=== PATIENT | female | born 1940 | race Two or more races ===

== ENCOUNTER 2018-03-19 10:15 | Inpatient (IN) | payer OTHER ==
[~2018-03-19] VITALS: Ht 162.6 cm; Wt 88.9 kg
[~2018-03-19 10:15] MED LIST: CATAFLAM50 MG; KETO10TA2 PO; NEURONTIN300 MG; ORPH100T PO; VASOFLEX TABLET1 TAB
[2018-03-19] MEDS ORDERED: SYNTHROID100 MCG PO (12:17)
[2018-03-19] MEDS ORDERED: METROPOLOL PO (12:18)
[2018-03-19] MEDS ORDERED: COZAAR50 MG PO (12:18)
[2018-03-19] MEDS ORDERED: ZOCOR20 MG PO (12:19)
[2018-03-19] MEDS ORDERED: GABAPENTIN400 MG PO (12:19)
[2018-03-19] MEDS ORDERED: COLAGENO PO (12:20)
[2018-03-19] MEDS ORDERED: [UNRECOGNIZED DRUG - OTHER] PO (12:20)
[2018-03-19] MEDS ORDERED: AMBIEN5 MG PO (12:21)
[2018-04-04] MEDS ORDERED: OXYC1TAB9 PO (15:45)
[2018-04-04] MEDS ORDERED: NeurRONTin 100mg cap PO (15:45)
[2018-04-04] MEDS ORDERED: XARELTO10 MG PO (15:45)
[2018-04-04] MEDS ORDERED: NORFLEX100MG PO (15:45)
== END 2018-04-04 18:52 | DRG 470 ==
LOC: EDSTATUS 10:15 → ADM 10:15 → O/R 04-01 07:45 → SURG 04-01 07:45 → SURH 04-01 10:15 → SURG 04-01 14:01
PROVIDERS: Orthopaedic Surgery
PROC: 0SRC0J9 Replacement of Right Knee Joint with Synthetic Substitute, Cemented, Open Approach (ICD-10-PCS; principal; 2018-04-01 14:00)
DX: M17.11 Unilateral primary osteoarthritis, right knee (principal); D62 Acute posthemorrhagic anemia; I10 Essential (primary) hypertension; E03.8 Other specified hypothyroidism